=== PATIENT | female | born 1950 | race Caucasian/White ===

== ENCOUNTER 2017-12-10 11:07 | Observation (INO) ==
[2017-12-10 11:10] VITALS: BMI 21.2
[2017-12-10] MEDS ORDERED: DEMEROL INJ IM ONE (11:27)
[2017-12-10] MEDS ORDERED: DEMEROL INJ ONE (11:30)
--- NOTE | 2017-12-10 11:35 | RAD ---
Right arm, two views Indication: Fall, arm pain Findings: There is acute fracture of the distal radius with fracture extension into the radiocarpal j oint demonstrating mild impaction and radial displacement of the fracture fragments. The radiocarpal articulation is grossly maintained. There is swelling about the wrist. There are degenerative changes of the triscaphe and thumb CMC joints. Impression: Acute intra-articular distal radial fracture. Dedicated wrist radiographs could be helpfu l for further characterization. Reported By:
--- NOTE | 2017-12-10 11:35 | DR.EXTPAIN ---
HPI Time seen Time seen: 11:25 PCP Primary Care Physician: VISH Complaint/Symptoms Chief Complaint Doctor Comments: Patient tripped and fell while attending to dog and injured her right wrist today. Pain is 10,sharp, worse with manipulation. Chief Complaint:: PT. FELL, LANDING ON HER RIGHT WRIST. PT. C/O PAIN TO RIGHT WRIST, DEFORMITY NOTED. PT. ALSO HAS A HEMATOMA NOTED TO RIGHT UPPER ARM. 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 Past Surgical History Comment: TUBAL LIGATION Family History History of Family Medical Conditions: Yes Family Medical History: Hypertension Social History Does patient currently use any type of tobacco product: Yes Have you used tobacco products in the last 12 months: Yes Type of Tobacco Use: Cigarettes Does any household member use tobacco: Yes Alcohol Use: None Do you use any recreational Drugs:: No Lives With: Spouse Lives Where: Home infectious screening In the last 2 months have you had wt loss of >10#?: NO Have you had fever, night sweats or hemotysis?: No Have you traveled outside the country in the last 6 months?: No Isolation: Standard ROS Review of Systems Musculoskeletal: Joint Swelling (right wrist) and Wrist (deformity of right wrist) PE Vital Signs Vitals: Temperature 98.2 F Pulse Rate [Left Brachial] 87 Pulse Rate 94 Respiratory Rate 22 Blood Pressure [Left Arm] 166/79 Blood Pressure 138/66 O2 Sat by Pulse Oximetry 93 General Limitations: No Limitations and Physical Limitation (right wrist) General Appearance: Alert, Anxious and In Distress Head Head Exam: Normal Inspection, Atraumatic and Normocephalic Eyes Eye exam: Normal Appearance, PERRL and EOMI; negative Scleral Icterus, Conjunctival Injection, Nystagmus, Miosis, Mydrasis, Periorbital Swelling and Periorbital Tenderness ENT ENT Exam: Normal Exam, Normal Oropharynx, Normal External Ear Exam, Mucous Membranes Moist and TM's Normal Bilaterally Neck Neck Exam: Normal Inspection, Full ROM and Trachea Midline; negative Tenderness , Meningismus and Lymphadenopathy Chest Chest Inspection: Normal Inspection and Symmetric Chest Wall Rise; negative Tenderness Respiratory Respiratory Exam: Normal Lung Sounds Bilat; negative Accessory Muscle Use, Chest Wall Tenderness, Prolonged Expiratory Phase, Respiratory Distress and Stridor Respiratory Exam: Bilateral: Clear to Auscultation Cardiovascular Cardiovascular Exam: Regular Rate and Normal Rhythm Abdominal Exam Abdominal Exam: Normal Inspection, Normal Bowel Sounds and Soft; negative Tenderness Extremities Extremities Exam: Normal Inspection, Tenderness (deformed and tender) and Normal Capillary Refill Upper Extremities Shoulder Exam: Normal Inspection Arm Exam: Normal Inspection Elbow Exam: Normal Inspection Forearm Exam: Normal Inspection Hand Exam: Tenderness (right hand/wrist) and Swelling Neuromotor Exam: Normal Exam; negative Wrist Extension (decreased) Lower Extremities Neurovascular/Tendon Exam: Normal Capillary Refill and Pulse Deficit COURSE Consultation Consultation Comments: Dr. Grace contacted, will come and see patient in ED ROR Labs Reviewed Result Diagrams: 12/10/17 14:20 12/10/17 14:20 Laboratory: WBC 7.0 X10^3/uL (3.6-10.0) 12/10/17 14:20 RBC 4.10 X10^6/uL (3.5-5.4) 12/10/17 14:20 Hgb 12.6 g/dL (12.0-16.0) 12/10/17 14:20 Hct 37.2 % (36.0-47.0) 12/10/17 14:20 MCV 90.9 fL (80.0-100.0) 12/10/17 14:20 MCH 30.7 pg (27.0-34.0) 12/10/17 14:20 MCHC 33.8 g/dL (33.0-35.0) 12/10/17 14:20 RDW 13.9 % (11.6-16.5) 12/10/17 14:20 Plt Count 171 X10^3/uL (150.0-450.0) 12/10/17 14:20 MPV 9.9 fL (7.4-11.0) 12/10/17 14:20 Neut % (Auto) 57.9 % (42.0-75.0) 12/10/17 14:20 Lymph % (Auto) 35.2 % (21.0-51.0) 12/10/17 14:20 [place] % (Auto) 5.2 % (0.0-13.0) 12/10/17 14:20 Eos % (Auto) 1.0 % (0.9-2.9) 12/10/17 14:20 Baso % (Auto) 0.7 % (0.2-1.0) 12/10/17 14:20 Neut # (Auto) 4.1 x10^3/uL (2.2-4.8) 12/10/17 14:20 Lymph # (Auto) 2.5 X10^3/uL (1.3-2.9) 12/10/17 14:20 [place] # (Auto) 0.4 x10^3/uL (0.3-0.8) 12/10/17 14:20 Eos # (Auto) 0.1 x10^3/uL (0.0-0.2) 12/10/17 14:20 Baso # (Auto) 0.1 X10^3/uL (0.0-0.1) 12/10/17 14:20 Absolute Nucleated RBC 0.0 /100WBC 12/10/17 14:20 Sodium 143 mmol/L (136-145) 12/10/17 14:20 Corrected Sodium 145 mmol/L (136-145) 12/10/17 14:20 Potassium 3.9 mmol/L (3.5-5.1) 12/10/17 14:20 Chloride 106 mmol/L (98-107) 12/10/17 14:20 Carbon Dioxide 27.9 mmol/L (21-32) 12/10/17 14:20 BUN 12 mg/dL (7-18) 12/10/17 14:20 Creatinine 0.95 mg/dL (0.55-1.02) 12/10/17 14:20 Est GFR (MDRD) Af Amer > 60 (>60) 12/10/17 14:20 Est GFR (MDRD) Non-Af > 60 (>60) 12/10/17 14:20 Glucose 179 mg/dL (65-99) H 12/10/17 14:20 Calcium 8.8 mg/dL (8.5-10.1) 12/10/17 14:20 Corrected Calcium TNP 12/10/17 14:20 Total Bilirubin 0.20 mg/dL (0.2-1.0) 12/10/17 14:20 AST 21 Units/L (15-37) 12/10/17 14:20 ALT 17 Units/L (12-78) 12/10/17 14:20 Alkaline Phosphatase 70 Units/L (46-116) 12/10/17 14:20 Creatine Kinase 128 Units/L (26-192) 12/11/17 05:17 CK-MB (CK-2) 2.3 ng/mL (0-4.0) 12/11/17 05:17 CK/CKMB % Calc 1.8 % (<4) 12/11/17 05:17 Troponin I < 0.02 ng/mL (0-1.5) 12/11/17 05:17 Total Protein 6.7 g/dL (6.4-8.2) 12/10/17 14:20 Albumin 3.5 g/dL (3.4-5.0) 12/10/17 14:20 Globulin 3.2 g/dL (2.5-4.5) 12/10/17 14:20 Albumin/Globulin Ratio 1.1 Ratio (1.1-2.1) 12/10/17 14:20 Triglycerides 57 mg/dL (0-150) 12/11/17 05:17 Cholesterol 119 mg/dL (0-200) 12/11/17 05:17 LDL Cholesterol, Calc 58 mg/dL (0-100) 12/11/17 05:17 HDL Cholesterol 50 mg/dL (40-60) 12/11/17 05:17 Cholesterol/HDL Ratio 2.4 (0.0-5.0) 12/11/17 05:17 Specimen Type Clean catch urine 12/10/17 20:24 Urine Color Yellow (YELLOW) 12/10/17 20:24 Urine Appearance Clear (CLEAR) 12/10/17 20:24 Urine pH 6.0 (5.0 - 8.0) 12/10/17 20:24 Ur Specific [place] 1.010 (1.000-1.030) 12/10/17 20:24 Urine Protein Negative (NEGATIVE) 12/10/17 20:24 Urine Glucose (UA) Negative (NEGATIVE) 12/10/17 20:24 Urine Ketones Negative (NEGATIVE) 12/10/17 20:24 Urine Occult Blood 1+ (NEGATIVE) 12/10/17 20:24 Urine Nitrite Negative (NEGATIVE) 12/10/17 20:24 Urine Bilirubin Negative (NEGATIVE) 12/10/17 20:24 Urine Urobilinogen Normal (NORMAL) 12/10/17 20:24 Ur Leukocyte Esterase Negative (NEGATIVE) 12/10/17 20:24 Urine RBC 0-2 /HPF (NONE SEEN) 12/10/17 20:24 Urine WBC 0-2 /HPF (NONE SEEN) 12/10/17 20:24 Ur Squamous Epith Cells Rare /HPF (NEGATIVE) 12/10/17 20:24 Urine Bacteria Negative /HPF (NEGATIVE) 12/10/17 20:24 Ur Culture Indicated? No/not indicated 12/10/17 20:24 Other Results Comments: X Ray: Acute intra-articular distal radial fracture. Procedures Procedure Comments Procedures: Dr. Grace evaualted patient and decided to take to OR for further treatment. Diagnosis Discharge Problem: Distal radius fracture, right, Intra-articular fracture of distal end of radius with volar angulation Instructions Instructions: Steps to Quit Smoking, [id number]-yi-[id number] Fall Prevention in the Home, [id number]-Dqdi Stroke Prevention, Nzwe-sn-Aaxo Radial Fracture Hypertension, Qbvs-qf-Ekih Pain Medicine Instructions, Jagj-um-Pycj Preventing Constipation After Surgery Forms: Patient Portal
[2017-12-10] MEDS ORDERED: NS 1000 ML 1,000 ML ONE (12:09)
[2017-12-10] MEDS ORDERED: VERSED ONE ×2 (12:15→14:16)
--- NOTE | 2017-12-10 12:31 | DR.CONSULT ---
Consult - Consultation for Day of: Date: 12/10/17 - Chief Complaint Chief Complaint: rt wrist fracture - History of Present Illness History of Present Illness: h/o fall today morning. fractuired rt wruist. seen in ER. unable to use the right wrist due to pain. - Past Medical History Past Medical History: Hypertension, Anxiety - Past Surgical History Surgical History: FREELANCE PHOTOGRAPHER Surgery, Hysterectomy - Family History Family Medical History: Hypertension - Social History Does patient currently use any type of tobacco product: Yes Have you used tobacco products in the last 12 months: Yes Type of Tobacco Use: Cigarettes Does any household member use tobacco: Yes Alcohol Use: None - Medications Home Medications: codeine Allergy (Verified 12/10/17 11:10) Sulfa (Sulfonamide Antibiotics) [SULFA] Allergy (Verified 12/10/17 11:10) - Review of Systems Musculoskeletal: See HPI - Physical Exam Vital Signs: Temperature 98.9 F Pulse Rate 84 Respiratory Rate 22 Blood Pressure 174/81 O2 Sat by Pulse Oximetry 96 Musculoskeletal: Right, Wrist, Swelling, Tender, Deformity, Instability, Crepitance - Plan Plan: CRPP. - Allergies Allergies/Adverse Reactions: Allergies Allergy/AdvReac Type Severity Reaction Status Date / Time codeine Allergy Verified 12/10/17 11:10 Sulfa (Sulfonamide Allergy Verified 12/10/17 11:10 Antibiotics) [SULFA]
--- NOTE | 2017-12-10 12:31 | RAD ---
HISTORY: Fell, right arm pain Study: Two-view right humerus Comparison: No priors Findings: There is joint space narrowing and marginal degenerative hypertrophy of the right AC joint. [place] ral joint is well maintained. The right humerus is intact without fracture or dislocation. Soft tissu es are unremarkable. IMPRESSION: Intact right humerus. Reported By:
[2017-12-10] MEDS ORDERED: ROBINUL ONE (13:13)
[2017-12-10] MEDS ORDERED: ANCEF 1 GRAM IV PREMIX* 1 G/50 ML BAG IV ONE (13:14)
[2017-12-10] MEDS ORDERED: D5 LR 1000 ML 1,000 ML IV ONE (13:14)
[2017-12-10] MEDS ORDERED: FENTANYL INJ 100 mcg ONE (13:44)
[2017-12-10] MEDS ORDERED: ATROPINE SULFATE ONE (14:16)
[2017-12-10] MEDS ORDERED: SUPRANE IN ONE (14:16)
[2017-12-10] MEDS ORDERED: EPHEDRINE SULFATE INJ ONE (14:16)
[2017-12-10] MEDS ORDERED: ZOFRAN INJ 4 MG VIAL ONE (14:16)
[2017-12-10] MEDS ORDERED: REGLAN INJ 10 MG VIAL ONE (14:16)
[2017-12-10] MEDS ORDERED: DIPRIVAN VIAL ONE (14:16)
[2017-12-10 14:35] LABS: BASOPHILS # (AUTO) 0.1 X10^3/uL (0.0-0.1); BASOPHILS % (AUTO) 0.7 % (0.2-1.0); EOSINOPHILS # (AUTO) 0.1 x10^3/uL (0.0-0.2); HEMATOCRIT 37.2 % (36.0-47.0); HEMOGLOBIN 12.6 g/dL (12.0-16.0); LYMPHOCYTES # (AUTO) 2.5 X10^3/uL (1.3-2.9); LYMPHOCYTES % (AUTO) 35.2 % (21.0-51.0); MEAN CORPUSCULAR HEMOGLOBIN 30.7 pg (27.0-34.0); MEAN CORPUSCULAR HGB CONC 33.8 g/dL (33.0-35.0); MEAN CORPUSCULAR VOLUME 90.9 fL (80.0-100.0); MEAN PLATELET VOLUME 9.9 fL (7.4-11.0); MONOCYTES # (AUTO) 0.4 x10^3/uL (0.3-0.8); MONOCYTES % (AUTO) 5.2 % (0.0-13.0); NEUTROPHILS # (AUTO) 4.1 x10^3/uL (2.2-4.8); NEUTROPHILS % (AUTO) 57.9 % (42.0-75.0); PLATELET COUNT 171 X10^3/uL (150.0-450.0); RED CELL DISTRIBUTION WIDTH 13.9 % (11.6-16.5)
[2017-12-10] MEDS ORDERED: PHENERGAN INJ 25 MG IVP PRN (14:49)
[2017-12-10] MEDS ORDERED: ZOFRAN INJ 4 MG VIAL IVP PRN ×2 (14:49→19:40)
[2017-12-10] MEDS ORDERED: BENADRYL INJ 50 MG VIAL IVP PRN (14:49)
[2017-12-10] MEDS ORDERED: REGLAN INJ 10 MG VIAL IVP PRN (14:49)
[2017-12-10] MEDS: DILAUDID INJ IVP PRN ×3 (14:50→15:06)
--- NOTE | 2017-12-10 14:55 | RAD ---
HISTORY: Possible MA during right wrist surgery. Study: Single-view chest, done portably Comparison: No priors Findings: Trachea is midline. Heart size is upper normal with atherosclerotic calcification and uncoiling the a ortic arch. Very mild pulmonary vascular congestion is present without infiltrate, CHF, pleural fluid or pneumothorax. Is prominence of right paratracheal soft tissues, likely on a vascular basis. [place] us structures are intact. IMPRESSION: Pertains to configuration with mild pulmonary vascular congestion. No CHF, infiltrate or pleural flui d is seen. Reported By:
[2017-12-10 15:01] LABS: ALANINE AMINOTRANSFERASE 17 Units/L (12-78); ALBUMIN 3.5 g/dL (3.4-5.0); ALKALINE PHOSPHATASE 70 Units/L (46-116); ASPARTATE AMINO TRANSFERASE 21 Units/L (15-37); BLOOD UREA NITROGEN 12 mg/dL (7-18); CALCIUM 8.8 mg/dL (8.5-10.1); CARBON DIOXIDE 27.9 mmol/L (21-32); CHLORIDE 106 mmol/L (98-107); CKMB % 1.5 % (<4); COR NA(FOR HYPERGLY) 145 mmol/L (136-145); CREATINE KINASE 114 Units/L (26-192); CREATINE KINASE MB 1.7 ng/mL (0-4.0); CREATININE 0.95 mg/dL (0.55-1.02); SODIUM 143 mmol/L (136-145); TOTAL PROTEIN 6.7 g/dL (6.4-8.2); TROPONIN I < 0.02 ng/mL (0-1.5); eGFR NON BLACK RACES > 60 (>60)
[2017-12-10] MEDS ORDERED: NORCO 5/325 MG TAB PO PRN (16:11)
[2017-12-10] MEDS ORDERED: ZOFRAN INJ 4 MG VIAL IVP ONE (16:12)
[2017-12-10] MEDS: LR 1000 ML IV 1,000 ML IV SCH (16:19)
[2017-12-10] MEDS ORDERED: PREVNAR 13 IM ONE (16:30)
[2017-12-10] MEDS ORDERED: MORPHINE SULFATE INJ 2 MG INJ IVP PRN (19:45)
[2017-12-10] MEDS: PERCOCET TAB 5/325 MG PO PRN (20:04)
[2017-12-10 20:47] LABS: BILIRUBIN,URINE NEGATIVE (NEGATIVE); BLOOD/HEMOGLOBIN,URINE 1+ (NEGATIVE); GLUCOSE, URINE NEGATIVE (NEGATIVE); KETONES,URINE NEGATIVE (NEGATIVE); LEUKOCYTE ESTERASE ,URINE NEGATIVE (NEGATIVE); NITRITES,URINE NEGATIVE (NEGATIVE); PROTEIN,URINE NEGATIVE (NEGATIVE); UROBILINOGEN,URINE NORMAL (NORMAL)
[2017-12-10 21:05] LABS: APPEARANCE,URINE CLEAR (CLEAR); COLOR,URINE YELLOW (YELLOW)
[2017-12-10 21:06] LABS: BACTERIA,URINE NEGATIVE /HPF (NEGATIVE); RBC,URINE 0-2 /HPF (NONE SEEN); SQUAMOUS EPITHELIAL CELL,UR RARE /HPF (NEGATIVE)
[2017-12-10 23:08] LABS: CKMB % 1.9 % (<4); CREATINE KINASE 126 Units/L (26-192); CREATINE KINASE MB 2.4 ng/mL (0-4.0); TROPONIN I < 0.02 ng/mL (0-1.5)
[2017-12-11] MEDS: LR 1000 ML IV 1,000 ML IV SCH ×2 (00:14→08:11)
[2017-12-11] MEDS: PERCOCET TAB 5/325 MG PO PRN ×3 (00:15→09:29)
[2017-12-11 06:14] LABS: CHOL/HDL RATIO 2.4 (0.0-5.0); CHOLESTEROL 119 mg/dL (0-200); CKMB % 1.8 % (<4); CREATINE KINASE 128 Units/L (26-192); CREATINE KINASE MB 2.3 ng/mL (0-4.0); HDL CHOLESTEROL 50 mg/dL (40-60); TRIGLYCERIDES 57 mg/dL (0-150); TROPONIN I < 0.02 ng/mL (0-1.5)
[2017-12-11 08:10] VITALS: BP 166/79
[2017-12-11] MEDS ORDERED: COZAAR PO SCH (09:00)
--- NOTE | 2017-12-11 12:11 | PCM.PROG ---
Progress Note - Progress Note for Day of Date of Exam: 12/11/17 - Subjective Subjective: POD-1. admitted for observation after intra op misbah/hypotn episode. labs/ekg- r/o any caridac event. ICU stay uneventful. expected rt wrist pain. contolled well with percocet. can be discahred at Dr sia smalls. - Past Medical Family Social History Allergies: Allergies codeine Allergy (Verified 12/10/17 11:10) Sulfa (Sulfonamide Antibiotics) [SULFA] Allergy (Verified 12/10/17 11:10) - Vital Signs and I&O's Vital Signs: Temperature 98.2 F Pulse Rate [Left Brachial] 87 Pulse Rate 94 Respiratory Rate 22 Blood Pressure [Left Arm] 166/79 Blood Pressure 138/66 O2 Sat by Pulse Oximetry 93 Intake and Output: Intake & Output 12/08/17 12/09/17 12/10/17 12/11/17 23:59 23:59 23:59 23:59 Intake Total 1999 / 1999 1043 / 1043 Output Total 995 / 995 Balance 1005 / 1005 1043 / 1043 - Physical Exam Musculoskeletal: Right, Wrist, Swelling, Tender, Deformity, Instability, Crepitance Mood Description: Calm Speech Pattern: Clear, Appropriate - Laboratory and Diagnostics Result Diagrams: 12/10/17 14:20 12/10/17 14:20 Labs: Laboratory WBC 7.0 X10^3/uL (3.6-10.0) 12/10/17 14:20 RBC 4.10 X10^6/uL (3.5-5.4) 12/10/17 14:20 Hgb 12.6 g/dL (12.0-16.0) 12/10/17 14:20 Hct 37.2 % (36.0-47.0) 12/10/17 14:20 MCV 90.9 fL (80.0-100.0) 12/10/17 14:20 MCH 30.7 pg (27.0-34.0) 12/10/17 14:20 MCHC 33.8 g/dL (33.0-35.0) 12/10/17 14:20 RDW 13.9 % (11.6-16.5) 12/10/17 14:20 Plt Count 171 X10^3/uL (150.0-450.0) 12/10/17 14:20 MPV 9.9 fL (7.4-11.0) 12/10/17 14:20 Neut % (Auto) 57.9 % (42.0-75.0) 12/10/17 14:20 Lymph % (Auto) 35.2 % (21.0-51.0) 12/10/17 14:20 [place] % (Auto) 5.2 % (0.0-13.0) 12/10/17 14:20 Eos % (Auto) 1.0 % (0.9-2.9) 12/10/17 14:20 Baso % (Auto) 0.7 % (0.2-1.0) 12/10/17 14:20 Neut # (Auto) 4.1 x10^3/uL (2.2-4.8) 12/10/17 14:20 Lymph # (Auto) 2.5 X10^3/uL (1.3-2.9) 12/10/17 14:20 [place] # (Auto) 0.4 x10^3/uL (0.3-0.8) 12/10/17 14:20 Eos # (Auto) 0.1 x10^3/uL (0.0-0.2) 12/10/17 14:20 Baso # (Auto) 0.1 X10^3/uL (0.0-0.1) 12/10/17 14:20 Absolute Nucleated RBC 0.0 /100WBC 12/10/17 14:20 Sodium 143 mmol/L (136-145) 12/10/17 14:20 Corrected Sodium 145 mmol/L (136-145) 12/10/17 14:20 Potassium 3.9 mmol/L (3.5-5.1) 12/10/17 14:20 Chloride 106 mmol/L (98-107) 12/10/17 14:20 Carbon Dioxide 27.9 mmol/L (21-32) 12/10/17 14:20 BUN 12 mg/dL (7-18) 12/10/17 14:20 Creatinine 0.95 mg/dL (0.55-1.02) 12/10/17 14:20 Est GFR (MDRD) Af Amer > 60 (>60) 12/10/17 14:20 Est GFR (MDRD) Non-Af > 60 (>60) 12/10/17 14:20 Glucose 179 mg/dL (65-99) H 12/10/17 14:20 Calcium 8.8 mg/dL (8.5-10.1) 12/10/17 14:20 Corrected Calcium TNP 12/10/17 14:20 Total Bilirubin 0.20 mg/dL (0.2-1.0) 12/10/17 14:20 AST 21 Units/L (15-37) 12/10/17 14:20 ALT 17 Units/L (12-78) 12/10/17 14:20 Alkaline Phosphatase 70 Units/L (46-116) 12/10/17 14:20 Creatine Kinase 128 Units/L (26-192) 12/11/17 05:17 CK-MB (CK-2) 2.3 ng/mL (0-4.0) 12/11/17 05:17 CK/CKMB % Calc 1.8 % (<4) 12/11/17 05:17 Troponin I < 0.02 ng/mL (0-1.5) 12/11/17 05:17 Total Protein 6.7 g/dL (6.4-8.2) 12/10/17 14:20 Albumin 3.5 g/dL (3.4-5.0) 12/10/17 14:20 Globulin 3.2 g/dL (2.5-4.5) 12/10/17 14:20 Albumin/Globulin Ratio 1.1 Ratio (1.1-2.1) 12/10/17 14:20 Triglycerides 57 mg/dL (0-150) 12/11/17 05:17 Cholesterol 119 mg/dL (0-200) 12/11/17 05:17 LDL Cholesterol, Calc 58 mg/dL (0-100) 12/11/17 05:17 HDL Cholesterol 50 mg/dL (40-60) 12/11/17 05:17 Cholesterol/HDL Ratio 2.4 (0.0-5.0) 12/11/17 05:17 Specimen Type Clean catch urine 12/10/17 20:24 Urine Color Yellow (YELLOW) 12/10/17 20:24 Urine Appearance Clear (CLEAR) 12/10/17 20:24 Urine pH 6.0 (5.0 - 8.0) 12/10/17 20:24 Ur Specific [place] 1.010 (1.000-1.030) 12/10/17 20:24 Urine Protein Negative (NEGATIVE) 12/10/17 20:24 Urine Glucose (UA) Negative (NEGATIVE) 12/10/17 20:24 Urine Ketones Negative (NEGATIVE) 12/10/17 20:24 Urine Occult Blood 1+ (NEGATIVE) 12/10/17 20:24 Urine Nitrite Negative (NEGATIVE) 12/10/17 20:24 Urine Bilirubin Negative (NEGATIVE) 12/10/17 20:24 Urine Urobilinogen Normal (NORMAL) 12/10/17 20:24 Ur Leukocyte Esterase Negative (NEGATIVE) 12/10/17 20:24 Urine RBC 0-2 /HPF (NONE SEEN) 12/10/17 20:24 Urine WBC 0-2 /HPF (NONE SEEN) 12/10/17 20:24 Ur Squamous Epith Cells Rare /HPF (NEGATIVE) 12/10/17 20:24 Urine Bacteria Negative /HPF (NEGATIVE) 12/10/17 20:24 Ur Culture Indicated? No/not indicated 12/10/17 20:24 - Plan (1) Distal radius fracture, right Status: Acute Plan: FU in a week. keep limb elevated and move fingers. keep splint on at all the time. take pain medications and antibiotics as advised. fu with me at office with xrays in a week.
--- NOTE | 2017-12-19 14:35 | OR.GENERIC ---
Post-Op Note Generic - Post-Op Note Operative Report: preoperative diagnosis-RIGHT wrist distal radius intraocular fracture. Postoperative diagnosis RIGHT wrist distal radius fracture. Procedure-RIGHT wrist closed reduction PINNING. Date of surgery 12/10/17. Indication-patient 67-year-old female came to the emergency room after a fall and fracture of the RIGHT wrist. X-rays showed an intra-articular fracture which is displaced. Natural history and treatment discussions were done with them. Patient will proceed with the closed reduction but is pinning. She was met with the pattern grader. Patient was cleared for surgery. Preoperative-patient is seen in the preoperative holding area. Limb was marked. Patient was met without assist. Patient would have probably undivided. Consent was obtained. Treatment options were discussed with her. She wanted to proceed with closed reduction but is pinning and casting. Combinations including but not limited to loss of reduction, need for further procedure, intra-articular arthritis, the original problems, nonunion, malunion , skin healing issues, pin tract issues, osteoporosis that she is a competitions which were discussed with her. Patient understood and verbalized same. Patient agreed and wanted to proceed with the procedure. Procedure-patient was brought to the operating room. Patient was placed supine on the operating table. RIGHT limb was placed on armrest. Patient was put under general anesthesia. Then successive endotracheal intubation was completed. The operating table was turned 90 to expose to give more room for the surgery. RIGHT limb was prepped and draped. Traction countertraction applied and the direct medication done to get the reduction. This was checked and in the C-arm both in AP lateral and oblique views. It was found to be stable after reduction. So it was decided to proceed with closed reduction but is pinning. 2 pins were placed from radial styloid into the medial codioulnar direction. 2 more pins were placed in the Urgent technique a proximal disk just distal to the fracture site getting the correct correct volar inclination. These were checked in the C-arm images. None of them and found to be protruding or having any complications. K wires are bent and cut. Almost at the end of the surgery was informed without assistive about her getting hypotensive as well as bradycardic. There was a suspicion of heart attack intraoperatively. The surgery was stopped immediately. Patient was revived the and her brother heart rate and blood pressure was brought up by the pattern grader. Patient was put in a sterile dressing . she was extubated and she was out of the general anesthesia.an electrocardiogram was performed in the operating room. Labs was called and the blood was drawn in the operating room to look for any enzymes. She was shifted to the PACU. Chest x-ray was obtained. All these were negative. Negative electrocardiogram, negative chest x-ray and negative labs indicating no myocardial infarction. Patient was admitted under Dr. BENITEZ for further management. I spoke with Dr. BENITEZ personally and updated him about the situation. Dr. BENITEZ was kind enough to admit her under him and her Intensive Care Unit for monitoring.the family was updated about the same. Postoperative images were obtained. It shows a satisfactory reduction as well as the K wire in place. The family was updated about the situation. We will shifted to the Intensive Care Unit for monitoring.
== END 2017-12-11 11:55 | disposition home or self-care (01) ==
LOC: ER 11:07 → ICU 13:01 → SURG1 13:01 → ICU 15:29
PROVIDERS: ADMIT Obstetrics & Gynecology Obstetrics; ATTEND Orthopaedic Surgery
DX: M25.531 Pain in right wrist; S52.571A Other intraarticular fracture of lower end of right radius, initial encounter for closed fracture; R00.1 Bradycardia, unspecified; I95.89 Other hypotension; W18.39XA Other fall on same level, initial encounter; Y92.89 Other specified places as the place of occurrence of the external cause
CPT/HCPCS: 29125; 36415; 71010; 71045; 73060; 73090; 76000; 80053; 80061; 81001; 82550; 82553; 84484; 85025; 93005; 93010; 96365; 96372; 99283; 99284; A4222; G0378; J0461; J0690; J1170; J2175; J2250; J2405; J2704; J2765; J3010; J3490; J7030; J7120; J7121